=== PATIENT | female | born 1945 | race Hispanic/Latino ===

== ENCOUNTER 2016-10-25 08:54 | Outpatient (CLI) | payer MEDICARE ==
[2016-10-25 12:47] LABS: Hemoglobin A1c 5.5 % (4.0-6.0)
== END 2016-10-25 08:55 ==
LOC: NAVSJIPCSP 08:54
PROVIDERS: ATTEND Internal Medicine
DX: E11.9 Type 2 diabetes mellitus without complications (principal); E78.5 Hyperlipidemia, unspecified; Z79.899 Other long term (current) drug therapy
CPT/HCPCS: 36415; 80061; 83036

== ENCOUNTER 2019-02-02 11:28 | Outpatient (CLI) | payer MEDICARE ==
--- NOTE | 2019-02-02 13:45 | RAD ---
RIGHT KNEE 2 VIEWS: HISTORY: Arthritis of the right knee, right knee pain. FINDINGS/IMPRESSION: There are mild degenerative changes. No fracture, dislocation, or bony destruction is seen. There i s a suggestion of a joint effusion. POS: [facility]
== END 2019-02-02 11:29 | disposition home or self-care (01) ==
LOC: NAV RAD 11:28
PROVIDERS: ATTEND Nurse Practitioner Family
DX: M17.11 Unilateral primary osteoarthritis, right knee (principal)

== ENCOUNTER 2022-07-12 13:51 | Emergency (ER) | payer MEDICARE | END 2022-07-12 15:50 | disposition home or self-care (01) | LOC: NAV ERS 13:51 | DX: M79.672 Pain in left foot (principal); E11.40 Type 2 diabetes mellitus with diabetic neuropathy, unspecified; I10 Essential (primary) hypertension; E03.9 Hypothyroidism, unspecified; Z79.84 Long term (current) use of oral hypoglycemic drugs; Z79.899 Other long term (current) drug therapy ==

== ENCOUNTER 2023-11-18 15:17 | Outpatient (CLI) | payer MEDICARE | END 2023-11-18 15:18 | disposition home or self-care (01) | LOC: NAV RAD 15:17 | PROVIDERS: ATTEND Nurse Practitioner Family | DX: M79.672 Pain in left foot (principal); M85.872 Other specified disorders of bone density and structure, left ankle and foot ==

== ENCOUNTER 2023-11-27 17:45 | Emergency (ER) | payer MEDICARE, OTHER ==
[2023-11-27] MEDS ORDERED: Cyclobenzaprine 10 MG TAB ONE (18:03)
[2023-11-27] MEDS ORDERED: Acetaminophen 500 MG TAB ONE (18:03)
== END 2023-11-27 18:44 | disposition home or self-care (01) ==
LOC: NAV ERS 17:45
DX: S80.01XA Contusion of right knee, initial encounter (principal); S60.212A Contusion of left wrist, initial encounter; I10 Essential (primary) hypertension; E11.9 Type 2 diabetes mellitus without complications; E03.9 Hypothyroidism, unspecified; W18.30XA Fall on same level, unspecified, initial encounter; Y93.01 Activity, walking, marching and hiking; Z79.84 Long term (current) use of oral hypoglycemic drugs; Z79.899 Other long term (current) drug therapy; Z75.8 Other problems related to medical facilities and other health care; Z55.6 Problems related to health literacy